=== PATIENT | female | born 1995 | race Caucasian/White ===

== ENCOUNTER 2017-11-06 02:51 | Emergency (ER) | payer OTHER ==
[~2017-11-06] VITALS: Ht 154.9 cm; Wt 54.4 kg
[2017-11-06] MEDS ORDERED: HYDR-3812 PO (03:42)
--- NOTE | 2017-11-06 03:42 | ED Upper Extremity ---
General Chief Complaint: Upper Extremity Stated Complaint: R HAND INJ Nursing Triage Note: right finger pain, hit with sheet metal Nursing Sepsis Screen: No Definite Risk Source: patient, automatic toe laster Exam Limitations: no limitations History of Present Illness Date Seen by Provider: Nov 06, 2017 Time Seen by Provider: 02:59 Initial Comments This 22-year-old woman presents to the emergency room with a farm loan representative from [place] where she suffered an injury to her right hand. A large stainless steel catch hart fell on her fingertips of the right hand causing swelling, bruising, and significant pain. They are concerned about fracture. There were no other injuries. Onset: just prior to arrival Allergies and Home Medications Allergies Coded Allergies: No Known Drug Allergies (Unverified , 11/06/17) Home Medications Hydrocodone/Acetaminophen 1 Each Tablet, 1-2 EACH PO Q4H PRN for PAIN-MODERATE TO SEVERE, #20 Prescribed by: PERRY QIU on 11/06/17 0342 Constitutional: no symptoms reported EENTM: no symptoms reported Respiratory: no symptoms reported Cardiovascular: no symptoms reported Gastrointestinal: no symptoms reported Genitourinary: no symptoms reported Musculoskeletal: see HPI Skin: see HPI Psychiatric/Neurological: No Symptoms Reported Past Bqgiihg-Mecuvg-Dgjqey Hx Patient Social History Alcohol Use: Denies Use Recreational Drug Use: No Smoking Status: Never a Smoker 2nd Hand Smoke Exposure: No Recent Foreign Travel: No Contact w/Someone Who Travel: No Recent Infectious Disease Expo: No Recent Hopitalizations: No Immunizations Up To Date Tetanus Booster (TDap): Less than 5yrs PED Vaccines UTD: Yes Seasonal Allergies Seasonal Allergies: No Surgeries History of Surgeries: No Respiratory History of Respiratory Disorde: No Cardiovascular History of Cardiac Disorders: No Neurological History of Neurological Disord: No Reproductive System : No Last Menstrual Period: Nov 06, 2017 Genitourinary History of Genitourinary Disor: No Gastrointestinal History of Gastrointestinal Di: No Musculoskeletal History of Musculoskeletal Dis: No Endocrine History of Endocrine Disorders: No HEENT History of HEENT Disorders: No Cancer History of Cancer: No Psychosocial History of Psychiatric Problem: No Integumentary History of Skin or Integumenta: No Blood Transfusions History of Blood Disorders: No Physical Exam Vital Signs Vital Sign - Last 12Hours 11/06/17 03:07 Temp 97.5 Pulse 75 Resp 18 B/P (MAP) 126/101 (109) Pulse Ox 100 O2 Delivery Room Air Capillary Refill : Less Than 3 Seconds General Appearance: WD/WN, mild distress HEENT: normal ENT inspection Cardiovascular: regular rate, rhythm, no edema, no murmur Respiratory: lungs clear, normal breath sounds, no respiratory distress, no accessory muscle use Wrist: Yes normal inspection, Yes non-tender, Yes no evidence of injury, Yes normal ROM Hand: Right (no pain or tenderness in the hand. There is ecchymosis, tenderness, and swelling of the distal third and fourth finger. Sensation remains intact. Range of motion in certified public accountant is decreased.) Neurologic/Psychiatric: automatic print developer II-XII nml as tested, no motor/sensory deficits, alert, normal mood/affect, oriented x 3 Skin: warm/dry, ecchymosis Progress/Results/Core Measures Results/Orders My Orders Orders - PERRY LAM MD Hand, Right, 3 Views (11/06/17 03:10) Rx-Hydrocodone/Apap 5-325 Mg (Rx-Vicodin (11/06/17 03:45) Medications Given in ED Current Medications Medications Dose Ordered Sig/Urvashi Route Start Time Stop Time Status Last Admin Dose Admin Acetaminophen/ Hydrocodone Bitart 1 ea Q4H PRN PO 11/06/17 03:45 11/06/17 03:37 1 EA Vital Signs/I&O Vital Sign - Last 12Hours 11/06/17 03:07 Temp 97.5 Pulse 75 Resp 18 B/P (MAP) 126/101 (109) Pulse Ox 100 O2 Delivery Room Air Blood Pressure Mean: 109 Progress Note : Progress Note Patient was given hydrocodone for pain. Fractures were found in the distal phalanx of the third and fourth fingers. The fracture in the fourth finger was displaced. Reduction was felt appropriate but the distal finger was so tightly swollen he did not feel this could be effectively performed until the swelling goes down. AlumaFoam splints were manipulated to fit and cover the tips of both fingers and were applied with medical tape. Patient was processed through the occupational health farm loan representative. Discharge instructions were discussed and appropriate paperwork was completed. Diagnostic Imaging Diagonstic Imaging: Xray Plain Films/CT/US/NM/MRI: hand Comments X-ray of the right hand viewed by me. Report not yet available. There is a nondisplaced fracture of the distal phalanx of the third finger. There is a displaced fracture of the distal phalanx of the fourth finger. Departure Impression Impression: Primary Impression: Fracture of finger, distal phalanx, right, closed Qualified Codes: S62.634A - Displaced fracture of distal phalanx of right ring finger, initial encounter for closed fracture Additional Impression: Fracture of phalanx of hand Qualified Codes: S62.609A - Fracture of unspecified phalanx of unspecified finger, initial encounter for closed fracture Disposition: HOME, SELF-CARE Condition: Improved Departure-Patient Inst. Decision time for Depature: 03:30 Referrals: NO,LOCAL PHYSICIAN (PCP) Primary Care Physician Patient Instructions: Finger Fracture (DC) Add. Discharge Instructions: Use the splints to protect the fingers. You may ice in 20 minute intervals to help reduce pain and swelling. Elevate to the level of the heart to also reduce swelling and pain. Follow-up with occupational health and/or an orthopedic surgeon for reassessment. The ring finger fracture is displaced and it may need to be reduced (set). This should be done after the swelling goes down. All discharge instructions reviewed with patient and/or family. Voiced understanding. Scripts Hydrocodone/Acetaminophen (Hydrocodone-Acetamin 5-325 mg) 1 Each Tablet 1-2 EACH PO Q4H Y for PAIN-MODERATE TO SEVERE, #20 TAB Prov: PERRY LAM MD 11/06/17 PERRY LAM MD Nov 06, 2017 03:42
[2017-11-06] MEDS ORDERED: RX-HYDROCODONE/APAP 5/325 MG #4 TAB PK PO PRN (03:45)
[2017-11-06 03:50] VITALS: BP 126/101
--- NOTE | 2017-11-06 07:47 | Diagnostic Imaging Report ---
INDICATION: Piece of metal fell on patient's hand third and fourth finger pain. EXAMINATION: Right hand 11/06/2017 FINDINGS: 3 views of the hand. There is a displaced fracture involving the distal fourth phalanx with the distal fracture fragment displaced in a dorsal direction and mildly foreshortened. Degree of dorsal displacement is approximately 5 mm. No intra-articular extension is seen. Nondisplaced fracture involving distal aspect of the distal third phalanx is also seen. No radio opaque foreign bodies noted. Remaining osseous structures intact. IMPRESSION: 1. Fractures of the third and fourth distal phalanges as described above. Dictated by: Dictated on workstation # [id number]
== END 2017-11-06 03:43 | disposition home or self-care (01) ==
LOC: ER 02:59
DX: S62.634A Displaced fracture of distal phalanx of right ring finger, initial encounter for closed fracture (principal); S62.662A Nondisplaced fracture of distal phalanx of right middle finger, initial encounter for closed fracture; W20.8XXA Other cause of strike by thrown, projected or falling object, initial encounter
CPT/HCPCS: 29130; 73130